=== PATIENT | male | born 1930 | race Caucasian/White ===

== ENCOUNTER 2017-07-20 16:18 | Inpatient (IN) | payer OTHER ==
[~2017-07-20] VITALS: Ht 152.4 cm; Wt 61.3 kg
[2017-07-20 17:39] LABS: BASOPHILS % 0.6 % (0.0-2.0); EOSINOPHILS % 2.2 % (0.0-5.0); HEMATOCRIT. 37.1 % (42.0-52.0); HEMOGLOBIN. 12.6 g/dL (14.0-18.0); LYMPHOCYTES % 21.2 % (20.0-50.0); MEAN CORPUSCULAR HEMOGLOBIN 34.8 pg (28.0-32.0); MEAN CORPUSCULAR VOLUME 102.5 fL (80.0-94.0); MEAN PLATELET VOLUME 7.9 fl (7.4-10.4); MONOCYTES % 6.1 % (2.0-8.0); NEUTROPHILS % 69.9 % (40.0-76.0); PLATELET 146 x1000/uL (130-400); RED BLOOD CELL COUNT 3.62 mill/uL (4.7-6.1); RED CELL DISTRIBUTION WIDTH 13.9 % (11.6-14.6)
[2017-07-20 17:44] LABS: PARTIAL THROMBOPLASTIN TIME 25.9 sec (23.4-31.0); PROTHROMBIN TIME 10.6 sec (9.4-11.6)
[2017-07-20 17:49] LABS: CARBON DIOXIDE 29 mEq/L (21-32); CHLORIDE 98 mEq/L (98-107)
[2017-07-20 17:56] LABS: TROPONIN I 0.04 ng/mL (0.00-0.04)
[2017-07-20] MEDS ORDERED: SODIUM CHLORIDE 0.9% 250 ML IV ONE (18:00)
[2017-07-20] MEDS ORDERED: ACETAMINOPHEN 325MG TABLET PO ONE (18:00)
[2017-07-20] MEDS ORDERED: GENTAMICIN 80MG PREMIX 100 ML IV ONE (19:30)
[2017-07-20] MEDS ORDERED: VANCOMYCIN 1 G PREMIX 200 ML IV SCH ×2 (19:30→22:00)
[2017-07-20 23:00] VITALS: BP 114/53
[2017-07-20 23:20] VITALS: BP 114/53
[2017-07-21] MEDS ORDERED: ACET-2853 PO (00:09)
[2017-07-21] MEDS ORDERED: REN800 PO (00:09)
[2017-07-21] MEDS ORDERED: AMLO5TAB88 PO (00:09)
[2017-07-21] MEDS ORDERED: ACETAMINOPHEN 325MG TABLET PO PRN (00:30)
[2017-07-21] MEDS ORDERED: ONDANSETRON HCL 4MG/2ML VIAL IV PRN (00:30)
[2017-07-21 04:00] VITALS: BP 119/65
[2017-07-21 06:11] LABS: HEMOGLOBIN. 10.5 g/dL (14.0-18.0); MEAN CORPUSCULAR HEMOGLOBIN 34.7 pg (28.0-32.0); MEAN CORPUSCULAR VOLUME 102.2 fL (80.0-94.0); MEAN PLATELET VOLUME 8.2 fl (7.4-10.4); PLATELET 125 x1000/uL (130-400); RED BLOOD CELL COUNT 3.04 mill/uL (4.7-6.1)
[2017-07-21 08:00] VITALS: BP 113/74
[2017-07-21] MEDS: SEVELAMER CARBONATE 800 MG TABLET PO SCH ×3 (08:28→17:06)
[2017-07-21] MEDS: HEPARIN 5000 UNITS/ML VIAL SUBCUT SCH ×2 (09:07→21:38)
[2017-07-21 12:00] VITALS: BP_SYST 109; BP_SYST 110; BP_SYST 123; BP_DIAS 56; BP_DIAS 65
[2017-07-21 13:21] VITALS: BP 123/62
[2017-07-21 14:56] LABS: PLATELET ESTIMATE SLIGHTLY DECREASED
[2017-07-21 16:00] VITALS: BP 123/61
[2017-07-21 20:18] VITALS: BP 140/69
[2017-07-21 20:22] LABS: HAPTOGLOBIN 133 mg/dL (30-200)
[2017-07-21 20:27] LABS: FERRITIN 1080 ng/mL (22-322)
[2017-07-21 20:39] LABS: HEPATITIS B SURFACE ANTIGEN NEGATIVE
[2017-07-21 20:42] LABS: FOLIC ACID (FOLATE) SERUM > 20.00 ng/mL (>5.38); VITAMIN B12 SERUM 432 pg/mL (211-911)
[2017-07-21 21:07] LABS: HEPATITIS B CORE AB IGM NEGATIVE
[2017-07-21 21:08] LABS: HEPATITIS A AB IGM NEGATIVE (NEGATIVE)
[2017-07-21] MEDS: AMLODIPINE 2.5MG TABLET PO SCH (21:36)
[2017-07-22] VITALS (9 sets, daily range): BP systolic 80–156; BP diastolic 59–72
[2017-07-22 06:44] LABS: BASOPHILS % 0.6 % (0.0-2.0); HEMATOCRIT. 30.9 % (42.0-52.0); HEMOGLOBIN. 10.5 g/dL (14.0-18.0); LYMPHOCYTES % 23.2 % (20.0-50.0); MEAN CORPUSCULAR HEMOGLOBIN 34.5 pg (28.0-32.0); MEAN CORPUSCULAR VOLUME 101.2 fL (80.0-94.0); MEAN PLATELET VOLUME 8.2 fl (7.4-10.4); MONOCYTES % 14.2 % (2.0-8.0); PLATELET 132 x1000/uL (130-400); RED BLOOD CELL COUNT 3.05 mill/uL (4.7-6.1); RED CELL DISTRIBUTION WIDTH 13.9 % (11.6-14.6)
[2017-07-22 07:15] LABS: GENTAMICIN RANDOM 2.9 ug/mL
[2017-07-22] MEDS: SEVELAMER CARBONATE 800 MG TABLET PO SCH ×3 (07:40→16:56)
[2017-07-22] MEDS: AMLODIPINE 2.5MG TABLET PO SCH ×2 (08:07→21:00)
[2017-07-22] MEDS: HEPARIN 5000 UNITS/ML VIAL SUBCUT SCH ×2 (09:39→21:11)
[2017-07-22] MEDS ORDERED: VANCOMYCIN 1250MG in DEXTROSE 5% WATER 250ML IV NR ×2 (12:00→16:00)
[2017-07-22] MEDS ORDERED: METOPROLOL TARTRATE 25MG TABLET PO NR (16:45)
[2017-07-22] MEDS ORDERED: GENTAMICIN 80MG PREMIX 100 ML IV SCH (18:00)
[2017-07-22] MEDS: METOPROLOL TARTRATE 25MG TABLET PO SCH (21:00)
[2017-07-23] VITALS: BP 105/60
[2017-07-23 04:00] VITALS: BP 122/62
[2017-07-23 08:00] VITALS: BP_SYST 129; BP_SYST 152; BP_DIAS 61; BP_DIAS 64; BP_DIAS 70
[2017-07-23] MEDS: METOPROLOL TARTRATE 25MG TABLET PO SCH (08:35)
[2017-07-23] MEDS: SEVELAMER CARBONATE 800 MG TABLET PO SCH (08:36)
[2017-07-23] MEDS: AMLODIPINE 2.5MG TABLET PO SCH (08:36)
[2017-07-23] MEDS: HEPARIN 5000 UNITS/ML VIAL SUBCUT SCH (08:36)
[2017-07-23 11:50] VITALS: BP 117/57
[2017-07-23 13:51] VITALS: BP 117/57
[2017-07-23] MEDS ORDERED: GENTAMICIN SULFATE 60 MG in SODIUM CHLORIDE 0.9% 50 ML IV NR (16:00)
[2017-07-24] MEDS ORDERED: CALC667C PO (20:33)
[2017-07-24] MEDS ORDERED: FOLI0.8T23 PO (20:33)
== END 2017-07-23 14:45 | disposition home or self-care (01) | DRG 720 ==
LOC: ER 17:07 → 8WST 20:42 → EDBEDREQ 21:48 → ENRESERV 22:01
PROVIDERS: ADMIT Internal Medicine; ATTEND Internal Medicine
PROC: 5A1D60Z (ICD-10-PCS; principal; 2017-07-20)
DX: A41.9 Sepsis, unspecified organism (principal); G92 Toxic encephalopathy; E87.2 Acidosis; N18.6 End stage renal disease; D69.6 Thrombocytopenia, unspecified; I13.11 Hypertensive heart and chronic kidney disease without heart failure, with stage 5 chronic kidney disease, or end stage renal disease; E11.22 Type 2 diabetes mellitus with diabetic chronic kidney disease; D63.8 Anemia in other chronic diseases classified elsewhere; Z99.2 Dependence on renal dialysis; E78.00 Pure hypercholesterolemia, unspecified; I95.9 Hypotension, unspecified; R94.01 Abnormal electroencephalogram [EEG]; I48.0 Paroxysmal atrial fibrillation
CPT/HCPCS: 36415; 70450; 70544; 70553; 71010; 80048; 80053; 80061; 80170; 80202; 82607; 82728; 82746; 82962; 83010; 83036; 83605; 83615; 83735; 84443; 84484; 85025; 85044; 85610; 85651; 85730; 86705; 86709; 86803; 87040; 87186; 87340; 93005; 93306; 93880; 96361; 96365; 96367; 97116; 97162; 97166; 99285; J1580; J1644; J3370; J7030; J7040; J7050; J7060

== ENCOUNTER 2017-07-24 10:57 | Inpatient (IN) | payer MEDICAID, OTHER ==
[~2017-07-24] VITALS: Ht 167.6 cm; Wt 54.4 kg
[~2017-07-24 10:57] MED LIST: ACET-2853 PO; AMLO5TAB88 PO; REN800 PO
[2017-07-24 11:53] LABS: HEMATOCRIT. 32.6 % (42.0-52.0); HEMOGLOBIN. 11.1 g/dL (14.0-18.0); MEAN CORPUSCULAR HEMOGLOBIN 34.5 pg (28.0-32.0); MEAN CORPUSCULAR VOLUME 101.3 fL (80.0-94.0); MEAN PLATELET VOLUME 7.5 fl (7.4-10.4); PLATELET 161 x1000/uL (130-400); RED BLOOD CELL COUNT 3.22 mill/uL (4.7-6.1); RED CELL DISTRIBUTION WIDTH 14.1 % (11.6-14.6)
[2017-07-24 12:01] LABS: PARTIAL THROMBOPLASTIN TIME 27.8 sec (23.4-31.0); PROTHROMBIN TIME 10.8 sec (9.4-11.6)
[2017-07-24 12:09] LABS: CARBON DIOXIDE 27 mEq/L (21-32); CHLORIDE 93 mEq/L (98-107); TROPONIN I 0.03 ng/mL (0.00-0.04)
[2017-07-24 12:11] LABS: PLATELET ESTIMATE NORMAL
[2017-07-24] MEDS ORDERED: CLONIDINE 0.1MG TABLET PO PRN (16:15)
[2017-07-24] MEDS ORDERED: ACETAMINOPHEN 325MG TABLET PO PRN (16:15)
[2017-07-24] MEDS ORDERED: GUAIFENESIN 200MG/10ML SUGAR FREE UDC PO PRN (16:15)
[2017-07-24] MEDS ORDERED: MAGNESIUM/ALUMINUM HYDROXIDE/SIMETHICONE 30ML UDC PO PRN (16:15)
[2017-07-24] MEDS ORDERED: DEXTROSE 50% WATER 50ML SYRINGE IV PRN (16:15)
[2017-07-24] MEDS ORDERED: IPRATROPIUM/ALBUTEROL 0.5-3(2.5)MG/3ML NEB INH PRN (16:15)
[2017-07-24] MEDS ORDERED: NITROGLYCERIN 0.4MG TABLET SL SL PRN (16:15)
[2017-07-24] MEDS ORDERED: ONDANSETRON HCL 4MG/2ML VIAL IV PRN (16:15)
[2017-07-24] MEDS ORDERED: DIPHENHYDRAMINE 50MG/ML VIAL IV PRN (16:15)
[2017-07-24] MEDS ORDERED: TETANUS, DIPHTHERIA, PERTUSSIS VAC/PF 0.5ML (>7YR OLD) IM ONE (16:30)
[2017-07-24 17:50] VITALS: BP 148/68
[2017-07-24] MEDS: CARVEDILOL 3.125 MG TABLET PO SCH (18:00)
[2017-07-24] MEDS ORDERED: ENOXAPARIN 30MG/0.3ML SYR SUBCUT SCH (18:00)
[2017-07-24] MEDS: INSULIN LISPRO 100 UNITS/ML SUBCUT SCH ×2 (18:07→22:21)
[2017-07-24] MEDS: SEVELAMER CARBONATE 800 MG TABLET PO SCH (18:15)
[2017-07-24] MEDS: TRAMADOL 50MG TABLET PO PRN (19:17)
[2017-07-24 19:30] VITALS: BP 120/59
[2017-07-24] MEDS: BLOOD SUGAR DIAGNOSTIC STRIP TEST SCH ×2 (19:47→22:21)
[2017-07-24 20:00] VITALS: BP 140/71
[2017-07-24] MEDS ORDERED: CALC667C PO (20:33)
[2017-07-24] MEDS ORDERED: FOLI0.8T23 PO (20:33)
[2017-07-24] MEDS ORDERED: ZOLPIDEM TARTRATE 5MG TABLET PO PRN (21:00)
[2017-07-24] MEDS: FAMOTIDINE 20MG/2ML VIAL IV SCH (22:17)
[2017-07-24] MEDS: ENOXAPARIN 30MG/0.3ML SYR SUBCUT SCH (22:18)
[2017-07-24 22:50] LABS: TROPONIN I 0.03 ng/mL (0.00-0.04)
[2017-07-24 22:51] LABS: CREATINE KINASE MB FRACTION 0.7 ng/mL (0.5-3.6)
[2017-07-25] VITALS: BP 147/80
[2017-07-25 04:00] VITALS: BP 107/53
[2017-07-25] MEDS: CARVEDILOL 3.125 MG TABLET PO SCH ×2 (06:00→18:15)
[2017-07-25] MEDS: BLOOD SUGAR DIAGNOSTIC STRIP TEST SCH ×4 (06:25→21:42)
[2017-07-25] MEDS: INSULIN LISPRO 100 UNITS/ML SUBCUT SCH ×4 (06:25→21:00)
[2017-07-25 06:30] LABS: HEMATOCRIT. 32.8 % (42.0-52.0); HEMOGLOBIN. 11.1 g/dL (14.0-18.0); MEAN CORPUSCULAR HEMOGLOBIN 34.6 pg (28.0-32.0); MEAN CORPUSCULAR VOLUME 101.9 fL (80.0-94.0); MEAN PLATELET VOLUME 7.8 fl (7.4-10.4); PLATELET 131 x1000/uL (130-400); RED BLOOD CELL COUNT 3.22 mill/uL (4.7-6.1); RED CELL DISTRIBUTION WIDTH 14.3 % (11.6-14.6)
[2017-07-25 06:54] LABS: TROPONIN I 0.03 ng/mL (0.00-0.04)
[2017-07-25 07:02] LABS: CREATINE KINASE MB FRACTION 0.8 ng/mL (0.5-3.6)
[2017-07-25 08:00] VITALS: BP 132/57
[2017-07-25 08:29] LABS: PLATELET ESTIMATE NORMAL
[2017-07-25] MEDS: TRAMADOL 50MG TABLET PO PRN ×3 (08:47→21:39)
[2017-07-25] MEDS: SEVELAMER CARBONATE 800 MG TABLET PO SCH ×3 (08:47→18:15)
[2017-07-25] MEDS: FOLIC ACID/VITAMIN B COMP W-C TABLET PO SCH (08:49)
[2017-07-25] MEDS: ASPIRIN 325MG EC TABLET PO SCH (08:49)
[2017-07-25 12:00] VITALS: BP 132/63
[2017-07-25 17:09] VITALS: BP 133/59
[2017-07-25 20:00] VITALS: BP 152/67
[2017-07-25] MEDS: FAMOTIDINE 20MG/2ML VIAL IV SCH (21:37)
[2017-07-25] MEDS: ENOXAPARIN 30MG/0.3ML SYR SUBCUT SCH (21:38)
[2017-07-26] VITALS: BP 120/78
[2017-07-26 04:00] VITALS: BP 138/67
[2017-07-26] MEDS: CARVEDILOL 3.125 MG TABLET PO SCH ×3 (06:12→20:49)
[2017-07-26] MEDS: BLOOD SUGAR DIAGNOSTIC STRIP TEST SCH ×4 (06:21→20:59)
[2017-07-26] MEDS: INSULIN LISPRO 100 UNITS/ML SUBCUT SCH ×4 (06:21→21:00)
[2017-07-26 06:35] LABS: BASOPHILS % 0.5 % (0.0-2.0); EOSINOPHILS % 4.4 % (0.0-5.0); HEMATOCRIT. 31.6 % (42.0-52.0); HEMOGLOBIN. 10.8 g/dL (14.0-18.0); LYMPHOCYTES % 18.7 % (20.0-50.0); MEAN CORPUSCULAR VOLUME 102.3 fL (80.0-94.0); MEAN PLATELET VOLUME 7.8 fl (7.4-10.4); MONOCYTES % 14.7 % (2.0-8.0); NEUTROPHILS % 61.7 % (40.0-76.0); PLATELET 139 x1000/uL (130-400); RED BLOOD CELL COUNT 3.08 mill/uL (4.7-6.1); RED CELL DISTRIBUTION WIDTH 13.9 % (11.6-14.6)
[2017-07-26 07:40] VITALS: BP 145/65
[2017-07-26] MEDS: SEVELAMER CARBONATE 800 MG TABLET PO SCH ×3 (08:52→18:02)
[2017-07-26] MEDS: ASPIRIN 325MG EC TABLET PO SCH (08:52)
[2017-07-26] MEDS: TRAMADOL 50MG TABLET PO PRN (08:52)
[2017-07-26] MEDS: FOLIC ACID/VITAMIN B COMP W-C TABLET PO SCH (08:52)
[2017-07-26 11:40] VITALS: BP 137/63
[2017-07-26] MEDS: MORPHINE SULFATE 4 MG/ML CPJ (NOT FOR IM USE) IV PRN ×2 (13:04→20:47)
[2017-07-26 15:35] VITALS: BP 144/67
[2017-07-26 20:00] VITALS: BP 142/75
[2017-07-26] MEDS: ENOXAPARIN 30MG/0.3ML SYR SUBCUT SCH (20:48)
[2017-07-26] MEDS: FAMOTIDINE 20MG/2ML VIAL IV SCH (20:48)
[2017-07-27] VITALS: BP 151/74
[2017-07-27 04:00] VITALS: BP 147/88
[2017-07-27] MEDS: MORPHINE SULFATE 4 MG/ML CPJ (NOT FOR IM USE) IV PRN ×4 (06:20→21:54)
[2017-07-27] MEDS: BLOOD SUGAR DIAGNOSTIC STRIP TEST SCH ×4 (06:32→21:45)
[2017-07-27] MEDS: INSULIN LISPRO 100 UNITS/ML SUBCUT SCH ×4 (06:32→21:44)
[2017-07-27 06:34] LABS: HEMOGLOBIN. 11.1 g/dL (14.0-18.0); MEAN CORPUSCULAR HEMOGLOBIN 34.5 pg (28.0-32.0); MEAN CORPUSCULAR VOLUME 102.8 fL (80.0-94.0); PLATELET 161 x1000/uL (130-400); RED BLOOD CELL COUNT 3.21 mill/uL (4.7-6.1)
[2017-07-27 08:00] VITALS: BP 139/65
[2017-07-27] MEDS: ASPIRIN 325MG EC TABLET PO SCH (09:12)
[2017-07-27] MEDS: SEVELAMER CARBONATE 800 MG TABLET PO SCH ×3 (09:13→18:16)
[2017-07-27] MEDS: FOLIC ACID/VITAMIN B COMP W-C TABLET PO SCH (09:13)
[2017-07-27 12:00] VITALS: BP 170/72
[2017-07-27] MEDS: LACTULOSE 20G/30ML UDC PO SCH ×2 (13:37→21:47)
[2017-07-27 16:00] VITALS: BP 136/54
[2017-07-27] MEDS: CARVEDILOL 3.125 MG TABLET PO SCH (18:16)
[2017-07-27 20:00] VITALS: BP 161/70
[2017-07-27] MEDS: FAMOTIDINE 20MG/2ML VIAL IV SCH (21:42)
[2017-07-27] MEDS: ENOXAPARIN 30MG/0.3ML SYR SUBCUT SCH (21:45)
[2017-07-27 22:54] LABS: PLATELET ESTIMATE NORMAL
[2017-07-28 01:17] VITALS: BP 120/61
[2017-07-28 04:00] VITALS: BP 130/69
[2017-07-28] MEDS: CARVEDILOL 3.125 MG TABLET PO SCH ×2 (06:00→18:00)
[2017-07-28] MEDS: LACTULOSE 20G/30ML UDC PO SCH ×3 (06:31→21:10)
[2017-07-28] MEDS: INSULIN LISPRO 100 UNITS/ML SUBCUT SCH ×4 (06:57→21:00)
[2017-07-28] MEDS: BLOOD SUGAR DIAGNOSTIC STRIP TEST SCH ×4 (06:57→21:00)
[2017-07-28 07:47] VITALS: BP 108/61
[2017-07-28 08:01] LABS: HEMATOCRIT. 32.4 % (42.0-52.0); HEMOGLOBIN. 10.9 g/dL (14.0-18.0); MEAN CORPUSCULAR HEMOGLOBIN 34.2 pg (28.0-32.0); MEAN CORPUSCULAR VOLUME 101.9 fL (80.0-94.0); PLATELET 184 x1000/uL (130-400); RED BLOOD CELL COUNT 3.18 mill/uL (4.7-6.1); RED CELL DISTRIBUTION WIDTH 13.9 % (11.6-14.6)
[2017-07-28] MEDS: ASPIRIN 325MG EC TABLET PO SCH (09:01)
[2017-07-28] MEDS: FOLIC ACID/VITAMIN B COMP W-C TABLET PO SCH (09:01)
[2017-07-28] MEDS: SEVELAMER CARBONATE 800 MG TABLET PO SCH ×2 (09:01→12:50)
[2017-07-28] MEDS: MORPHINE SULFATE 4 MG/ML CPJ (NOT FOR IM USE) IV PRN (09:02)
[2017-07-28 11:32] VITALS: BP 116/63
[2017-07-28 16:00] VITALS: BP 109/63
[2017-07-28 16:53] LABS: PLATELET ESTIMATE NORMAL
[2017-07-28 20:00] VITALS: BP 105/64
[2017-07-28] MEDS: FAMOTIDINE 20MG/2ML VIAL IV SCH (21:10)
[2017-07-28] MEDS: ENOXAPARIN 30MG/0.3ML SYR SUBCUT SCH (21:10)
[2017-07-29] VITALS (7 sets, daily range): BP systolic 80–119; BP diastolic 33–59
[2017-07-29] MEDS: CARVEDILOL 3.125 MG TABLET PO SCH ×2 (06:00→18:00)
[2017-07-29 06:19] LABS: HEMATOCRIT. 31.9 % (42.0-52.0); HEMOGLOBIN. 10.7 g/dL (14.0-18.0); MEAN CORPUSCULAR HEMOGLOBIN 34.3 pg (28.0-32.0); MEAN CORPUSCULAR VOLUME 102.6 fL (80.0-94.0); MEAN PLATELET VOLUME 7.3 fl (7.4-10.4); PLATELET 178 x1000/uL (130-400); RED BLOOD CELL COUNT 3.11 mill/uL (4.7-6.1); RED CELL DISTRIBUTION WIDTH 13.8 % (11.6-14.6)
[2017-07-29] MEDS: LACTULOSE 20G/30ML UDC PO SCH ×3 (06:20→21:16)
[2017-07-29] MEDS: BLOOD SUGAR DIAGNOSTIC STRIP TEST SCH ×4 (06:21→21:00)
[2017-07-29] MEDS: INSULIN LISPRO 100 UNITS/ML SUBCUT SCH ×4 (07:31→21:00)
[2017-07-29] MEDS: ASPIRIN 325MG EC TABLET PO SCH (08:31)
[2017-07-29] MEDS: SEVELAMER CARBONATE 800 MG TABLET PO SCH ×3 (08:31→18:11)
[2017-07-29] MEDS: FOLIC ACID/VITAMIN B COMP W-C TABLET PO SCH (08:31)
[2017-07-29 10:46] LABS: PLATELET ESTIMATE NORMAL
[2017-07-29] MEDS: HYDROCODONE/ACETAMINOPHEN 10/325MG TABLET PO PRN (14:24)
[2017-07-29] MEDS: FAMOTIDINE 20MG/2ML VIAL IV SCH (21:14)
[2017-07-29] MEDS: ENOXAPARIN 30MG/0.3ML SYR SUBCUT SCH (21:15)
[2017-07-30] VITALS (7 sets, daily range): BP systolic 95–130; BP diastolic 51–65
[2017-07-30] MEDS: CARVEDILOL 3.125 MG TABLET PO SCH ×2 (06:02→18:39)
[2017-07-30] MEDS: LACTULOSE 20G/30ML UDC PO SCH ×2 (06:02→14:04)
[2017-07-30] MEDS: BLOOD SUGAR DIAGNOSTIC STRIP TEST SCH ×4 (06:30→20:55)
[2017-07-30 07:09] LABS: HEMATOCRIT. 31.7 % (42.0-52.0); HEMOGLOBIN. 10.7 g/dL (14.0-18.0); MEAN CORPUSCULAR HEMOGLOBIN 34.6 pg (28.0-32.0); MEAN CORPUSCULAR VOLUME 102.5 fL (80.0-94.0); MEAN PLATELET VOLUME 7.6 fl (7.4-10.4); PLATELET 207 x1000/uL (130-400); RED CELL DISTRIBUTION WIDTH 14.1 % (11.6-14.6)
[2017-07-30] MEDS: INSULIN LISPRO 100 UNITS/ML SUBCUT SCH ×4 (07:50→20:55)
[2017-07-30 08:09] LABS: PLATELET ESTIMATE NORMAL
[2017-07-30] MEDS: SEVELAMER CARBONATE 800 MG TABLET PO SCH ×3 (08:40→18:38)
[2017-07-30] MEDS: FOLIC ACID/VITAMIN B COMP W-C TABLET PO SCH (08:41)
[2017-07-30] MEDS: ASPIRIN 325MG EC TABLET PO SCH (08:41)
[2017-07-30] MEDS: HYDROCODONE/ACETAMINOPHEN 10/325MG TABLET PO PRN (09:02)
== END 2017-07-30 21:30 | DRG 341 ==
LOC: ER 11:14 → 6WST 15:22 → ENRESERV 16:06 → 6WST 18:12
PROVIDERS: ADMIT Internal Medicine; ATTEND Internal Medicine
DX: S32.810A Multiple fractures of pelvis with stable disruption of pelvic ring, initial encounter for closed fracture (principal); E44.0 Moderate protein-calorie malnutrition; N18.6 End stage renal disease; I12.0 Hypertensive chronic kidney disease with stage 5 chronic kidney disease or end stage renal disease; E11.22 Type 2 diabetes mellitus with diabetic chronic kidney disease; E87.1 Hypo-osmolality and hyponatremia; E83.52 Hypercalcemia; D63.8 Anemia in other chronic diseases classified elsewhere; S50.311A Abrasion of right elbow, initial encounter; S90.519A Abrasion, unspecified ankle, initial encounter; R55 Syncope and collapse; W18.30XA Fall on same level, unspecified, initial encounter; Y93.89 Activity, other specified; Y92.89 Other specified places as the place of occurrence of the external cause; Y99.8 Other external cause status; Z99.2 Dependence on renal dialysis; Z79.82 Long term (current) use of aspirin; Z79.4 Long term (current) use of insulin; Z79.899 Other long term (current) drug therapy; Z68.1 Body mass index [BMI] 19.9 or less, adult
CPT/HCPCS: 36415; 71010; 72192; 73502; 73700; 80048; 80053; 80061; 82550; 82553; 82962; 83036; 83690; 84484; 85025; 85610; 85730; 93005; 93970; 97110; 97116; 97163; 97166; 97530; 99285; C1893; J1200; J1650; J1815; J2270; J3490; J7030